=== PATIENT | male | born 1995 | race African-American/Black ===

== ENCOUNTER 2018-02-16 09:05 | Emergency (ER) | payer SELFPAY ==
[~2018-02-16] VITALS: Ht 177.8 cm; Wt 75.0 kg
[2018-02-16] MEDS ORDERED: IBUPROFEN 600MG TABLET PO ONE (09:45)
[2018-02-16 10:25] VITALS: BP 122/78
== END 2018-02-16 10:34 | disposition home or self-care (01) ==
LOC: ER 09:54
DX: R07.9 Chest pain, unspecified (principal); Z98.890 Other specified postprocedural states
CPT/HCPCS: 93005; 99283

== ENCOUNTER 2018-09-26 19:53 | Emergency (ER) | payer SELFPAY | END 2018-09-26 21:46 | disposition left against medical advice (07) | LOC: ER 19:53 | DX: Z53.21 Procedure and treatment not carried out due to patient leaving prior to being seen by health care provider (principal) ==